=== PATIENT | male | born 1955 | race Caucasian/White ===

== ENCOUNTER 2017-03-24 12:37 | Outpatient (CLI) | payer BC ==
--- NOTE | 2017-03-24 15:48 | RAD ---
PA AND LATERAL CHEST: History: Dyspnea. FINDINGS: Heart size is within normal limits. Calcified hilar lymph nodes and mediastinal nodes are noted. No acute process. There is some interstitial change in the left upper lobe which is felt to represent s car. IMPRESSION: Old granulomatous disease with some mild chronic appearing lung change. POS: [facility]
== END 2017-03-24 12:38 | disposition home or self-care (01) ==
LOC: RAD 12:37
PROVIDERS: ATTEND Internal Medicine Pulmonary Disease
DX: R06.00 Dyspnea, unspecified (principal); D71 Functional disorders of polymorphonuclear neutrophils
CPT/HCPCS: 71020